=== PATIENT | male | born 1945 | race Caucasian/White ===

== ENCOUNTER 2021-11-27 10:53 | Emergency (ER) | payer MEDICARE, OTHER ==
[~2021-11-27] VITALS: Ht 172 cm; Wt 85.0 kg
--- NOTE | 2021-11-27 11:05 | ED Lower Extremity ---
General Stated Complaint: LEG PAIN Source: patient, EMS History of Present Illness Date Seen by Provider: Nov 27, 2021 Time Seen by Provider: 10:52 Initial Comments 76 yo male presenting with [facility] from [facility] with complaint of left knee pain. He had rolled out of bed and was complaining of left knee pain. He also has swelling and abrasion to left upper lip. He denies LOC. 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 He does not fully extend his legs usually due to contractures. His right leg is flexed at the knee and he points to just below his knee when asked where it hurts. He denies any other injury. He has no chest or abdomen pain. Onset: this morning Severity: moderate Pain/Injury Location: right knee Method of Injury: fell (rolled out of bed) Modifying Factors: Worse With Movement Allergies and Home Medications Allergies Coded Allergies: No Known Drug Allergies (Unverified , 11/27/21) Patient Home Medication List Home Medication List Reviewed: Yes Ibuprofen (Ibuprofen) 600 Mg Tablet, 600 MG PO Q8H PRN for pain/inflammation Prescribed by: ELOISA VELOZ on 11/27/21 1147 Review of Systems Constitutional: no symptoms reported EENTM: see HPI, mouth swelling (mild swelling and abrasion to left upper lip), other (widespread dental decay and several missing teeth); No epistaxis Respiratory: no symptoms reported Cardiovascular: no symptoms reported Gastrointestinal: no symptoms reported Genitourinary: no symptoms reported Musculoskeletal: see HPI Skin: see HPI, other (superficial abrasion and mild swelling to left upper lip) Psychiatric/Neurological: No Symptoms Reported Past Hmjeujt-Omcwwe-Bpfnqt Hx Patient Social History Tobacco Use?: No Substance use?: No Alcohol Use?: No Past Medical History Surgery/Hospitalization HX: Developmental Delay, Leg contractures Physical Exam Vital Signs Vital Signs - First Documented 11/27/21 11/27/21 11:03 12:18 Temp 36.5 Pulse 91 Resp 18 B/P (MAP) 140/78 (98) Pulse Ox 94 Capillary Refill : Height, Weight, BMI Height: '" Weight: lbs. oz. kg; BMI Method: General Appearance: no apparent distress, other (chronically ill) HEENT: PERRL/EOMI, other (negative archer sign, negative raccoon sign, no CSF rhinorrhea/otorrhea. superficial abrasion and mild swelling to left side of upper lip. widespread dental decay with several missing teeth) Neck: non-tender, full range of motion, supple, normal inspection Cardiovascular: normal peripheral pulses, regular rate, rhythm Respiratory: chest non-tender, lungs clear, normal breath sounds Gastrointestinal: normal bowel sounds, non tender, soft, no pulsatile mass Hips: bilateral hip non-tender, bilateral hip normal inspection Knees: right knee pain, right knee soft tissue tenderness; bilateral knee other (bilateral chronic flexion and contractures to Bilateral lower extremities) Neurologic/Tendon: normal sensation Neurologic/Psychiatric: alert Skin: normal color, warm/dry Progress/Results/Core Measures Results/Orders My Orders Orders - ELOISA VELOZ MD Knee 3 View Right (11/27/21 10:58) Femur 2 View Right (11/27/21 10:58) Ice: Apply To Affected Area (11/27/21 10:58) Ketorolac Injection (Toradol Injection) (11/27/21 12:00) Morphine Injection (Morphine Injection (11/27/21 12:00) Jb Bandage (11/27/21 12:00) Vital Signs/I&O 11/27/21 11/27/21 11:03 12:18 Temp 36.5 Pulse 91 87 Resp 18 18 B/P (MAP) 140/78 (98) 131/72 Pulse Ox 94 Progress Progress Note #1: Progress Note Nurses cleaned his lip abrasion. Order Ice pack for swollen lip and knee pain. Xrays of right femur and knee since he was grabbing his distal femur with complaint of pain when being moved to bed and points to inferior aspect of knee when asked where it hurts him. Progress Note #2: Progress Note On my review of the x-rays of his right femur and right knee there is no acute fracture or dislocation. He has degenerative changes especially on the right hip. Treat symptomatically and have him follow-up through the clinic for continued pains and concerns. Could apply an ice bandage for some compression and support to his knee however with him having chronic contracture of the knee on the right side it may not help very much. He may need to follow-up with the clinic and/or had physical therapy to help with things. If he continues to have pain in his symptoms or not improving the clinic may need him to see orthopedics or physical therapy for further evaluation Diagnostic Imaging Diagonstic Imaging: Xray Plain Films/CT/US/NM/MRI: knee Comments [facility], [place] NAME: JEAN ELLIS [facility] REC#: [id number] PT STATUS: REG ER : 1945 PHYSICIAN: ELOISA VELOZ MD ADMIT DATE: 11/27/21/ER FS Signed Date of Exam:11/27/21 KNEE 3 VIEW RIGHT Indication: Right leg injury from a fall 3 views of the right knee do not show any displaced fractures. There is no appreciable effusion. There is no dislocation. IMPRESSION: Unremarkable right knee Dictated by: Dictated on workstation # [id number] Dict: 11/27/21 1138 Trans: 11/27/21 1139 [facility] [id number] Interpreted by: SAMUEL DECKER MD Electronically signed by: SAMUEL DECKER MD 11/27/21 1139 Reviewed: Reviewed by Nd Diagonstic Imaging: Xray Plain Films/CT/US/NM/MRI: femur Comments [facility], [place] NAME: JEAN ELLIS [facility] REC#: [id number] PT STATUS: REG ER : 1945 PHYSICIAN: ELOISA VELOZ MD ADMIT DATE: 11/27/21/ER FS Draft Date of Exam:11/27/21 FEMUR 2 VIEW RIGHT INDICATION: Right leg pain, fall. TIME OF EXAM: 11:11 AM Multiple views of the right femur were obtained. The right hip does show severe osteoarthritic changes. There is significant narrowing of the superior and medial joint spaces. There is also some flattening of the articular surfaces of the femoral head but no definite fracture is seen. Subchondral cyst formation and sclerosis of the femoral head. Alignment at the knee is normal as well. No femur fracture is identified. IMPRESSION: Severe osteoarthritic changes of the right hip. No definite femur fracture is detected. Dictated on workstation # [id number] Dict: 11/27/21 1139 Trans: 11/27/21 1143 B [id number] Interpreted by: PRISCILLA KAISER MD Electronically signed by: Reviewed: Reviewed by Me Departure Impression Primary Impression: Contusion of lip, initial encounter Additional Impressions: Abrasion of lip, initial encounter Right anterior knee pain Fall from bed, initial encounter Disposition: HOME, SELF-CARE Condition: Stable Departure-Patient Inst. Decision time for Depature: 12:01 Referrals: [facility] Patient Instructions: Knee Pain ED, Minor Contusion ED, Abrasions ED Add. Discharge Instructions: No obvious fracture, broken bone or dislocation seen on xrays. Use ice pack 15-20 minutes every 3-4 hours as needed for pain and swelling. You could use the Jb bandage to help with compression and support for the knee Ibuprofen 600 mg every 8 hours as needed for pain and inflammation. Check back with clinic if you have continued pain/concerns. They may need to refer you to physical therapy or Orthopedics if having continued issues and not improving. Scripts Ibuprofen (Ibuprofen) 600 Mg Tablet 600 MG PO Q8H PRN for pain/inflammation for 10 Days, #30 TAB 0 Refills Prov: ELOISA VELOZ MD 11/27/21 ELOISA VELOZ MD Nov 27, 2021 11:05
--- NOTE | 2021-11-27 11:41 | Diagnostic Imaging Report ---
Indication: Right leg injury from a fall 3 views of the right knee do not show any displaced fractures. There is no appreciable effusion. There is no dislocation. IMPRESSION: Unremarkable right knee Dictated by: Dictated on workstation # [id number]
--- NOTE | 2021-11-27 11:43 | Diagnostic Imaging Report ---
INDICATION: Right leg pain, fall. TIME OF EXAM: 11:11 AM Multiple views of the right femur were obtained. The right hip does show severe osteoarthritic changes. There is significant narrowing of the superior and medial joint spaces. There is also some flattening of the articular surfaces of the femoral head but no definite fracture is seen. Subchondral cyst formation and sclerosis of the femoral head. Alignment at the knee is normal as well. No femur fracture is identified. IMPRESSION: Severe osteoarthritic changes of the right hip. No definite femur fracture is detected. Dictated by: Dictated on workstation # [id number]
[2021-11-27] MEDS ORDERED: IBUP-1773 PO (11:47)
[2021-11-27] MEDS ORDERED: KETOROLAC 30 MG/ML VIAL IM STA (12:00)
[2021-11-27] MEDS ORDERED: morphine INJ 10 MG/ML 1ML (SYR OR VIAL) IM STA (12:00)
[2021-11-27 12:18] VITALS: BP 131/72
== END 2021-11-27 12:15 | disposition home or self-care (01) ==
LOC: ER FS 10:57
DX: S00.531A Contusion of lip, initial encounter (principal); M25.561 Pain in right knee; W06.XXXA Fall from bed, initial encounter
CPT/HCPCS: 73552; 73562

== ENCOUNTER 2021-12-25 08:40 | Emergency (ER) | payer MEDICARE ==
[~2021-12-25] VITALS: Ht 175 cm; Wt 83.0 kg
[~2021-12-25 08:40] MED LIST: IBUP-1773 PO
[2021-12-25] MEDS ORDERED: FAMOTIDINE 20MG/2ML IV (PEPCID) IV STA (08:48)
--- NOTE | 2021-12-25 08:48 | ED Chest Pain ---
General Stated Complaint: CHEST PAIN History of Present Illness Date Seen by Provider: Dec 25, 2021 Time Seen by Provider: 08:44 Initial Comments 76-year-old male presents with some epigastric/chest pain is now around his mid belly. Pain started this morning. He had some mild nausea. Patient denies any fever, chills, shortness of breath. No reports of vomiting or diarrhea. Patient does have some developmental delay. No radiation of the pain. He denies pain at this time. Family reports he has been a little nervous because he scheduled to have his right hip replaced in about 2 weeks. Allergies and Home Medications Allergies Coded Allergies: No Known Drug Allergies (Unverified , 11/27/21) Patient Home Medication List Home Medication List Reviewed: Yes Ibuprofen (Ibuprofen) 600 Mg Tablet, 600 MG PO Q8H PRN for pain/inflammation Prescribed by: ELOISA VELOZ on 11/27/21 1147 Review of Systems Review of Systems Constitutional: No chills; dizziness; No fever EENTM: No Symptoms Reported Respiratory: Denies Cough, Denies Shortness of Air Cardiovascular: See HPI, Chest Pain; Denies Irregular Heart Rate, Denies Palpitations Gastrointestinal: See HPI, Abdominal Pain; Denies Diarrhea; Nausea; Denies Vomiting Skin: no symptoms reported Psychiatric/Neurological: See HPI Endocrine: No Symptoms Reported Hematologic/Lymphatic: No Symptoms Reported Past Bsieoso-Allzmk-Zaxzxu Hx Past Medical History Surgery/Hospitalization HX: Developmental Delay, Leg contractures Physical Exam Vital Signs Vital Signs - First Documented 12/25/21 08:59 Temp 35.7 Pulse 103 Resp 22 B/P (MAP) 108/62 (77) Pulse Ox 97 O2 Delivery Room Air Capillary Refill : Height, Weight, BMI Height: '" Weight: lbs. oz. kg; 28.00 BMI Method: General Appearance: No Apparent Distress, WD/WN Respiratory: Lungs Clear, Normal Breath Sounds Cardiovascular: Regular Rate, Rhythm, No Edema Gastrointestinal: Non Tender, Soft Extremity: Normal Capillary Refill, Other (Baseline, he does have some tende rness that is chronic on the right hip) Neurologic/Psychiatric: Alert, No Motor/Sensory Deficits, Normal Mood/Affect, Other (At baseline) Skin: Normal Color, Warm/Dry Progress/Results/Core Measures Results/Orders Lab Results Laboratory Tests Test 12/25/21 08:55 Range/Units White Blood Count 7.8 4.3-11.0 10^3/uL Red Blood Count 4.58 4.30-5.52 10^6/uL Hemoglobin 13.4 13.3-17.7 g/dL Hematocrit 41 40-54 % Mean Corpuscular Volume 88 80-99 fL Mean Corpuscular Hemoglobin 29 25-34 pg Mean Corpuscular Hemoglobin Concent 33 32-36 g/dL Red Cell Distribution Width 14.0 10.0-14.5 % Platelet Count 153 130-400 10^3/uL Mean Platelet Volume 11.7 9.0-12.2 fL Immature Granulocyte % (Auto) 0 % Neutrophils (%) (Auto) 81 H 42-75 % Lymphocytes (%) (Auto) 13 12-44 % Monocytes (%) (Auto) 4 0-12 % Eosinophils (%) (Auto) 2 0-10 % Basophils (%) (Auto) 1 0-10 % Neutrophils # (Auto) 6.3 1.8-7.8 10^3/uL Lymphocytes # (Auto) 1.0 1.0-4.0 10^3/uL Monocytes # (Auto) 0.3 0.0-1.0 10^3/uL Eosinophils # (Auto) 0.2 0.0-0.3 10^3/uL Basophils # (Auto) 0.0 0.0-0.1 10^3/uL Immature Granulocyte # (Auto) 0.0 0.0-0.1 10^3/uL Sodium Level 143 135-145 MMOL/L Potassium Level 3.6 3.6-5.0 MMOL/L Chloride Level 106 98-107 MMOL/L Carbon Dioxide Level 20 L 21-32 MMOL/L Anion Gap 17 H 5-14 MMOL/L Blood Urea Nitrogen 38 H 7-18 MG/DL Creatinine 1.86 H 0.60-1.30 MG/DL Estimat Glomerular Filtration Rate 37 BUN/Creatinine Ratio 20 Glucose Level 148 H 70-105 MG/DL Calcium Level 8.6 8.5-10.1 MG/DL Corrected Calcium 8.5 8.5-10.1 MG/DL Total Bilirubin 0.8 0.1-1.0 MG/DL Aspartate Amino Transf (AST/SGOT) 14 5-34 U/L Alanine Aminotransferase (ALT/SGPT) 10 0-55 U/L Alkaline Phosphatase 87 40-136 U/L Troponin I < 0.30 <0.30 NG/ML C-Reactive Protein < 0.30 <0.50 MG/DL Total Protein 6.9 6.4-8.2 GM/DL Albumin 4.1 3.2-4.5 GM/DL Lipase 34 8-78 U/L My Orders Orders - SALGADO,MOR L DO Cbc With Automated Diff (12/25/21 08:48) Comprehensive Metabolic Panel (12/25/21 08:48) Lipase (12/25/21 08:48) Ua Culture If Indicated (12/25/21 08:48) Crp Fs (12/25/21 08:48) Troponin I Fs (12/25/21 08:48) Ondansetron Injection (Zofran Injectio (12/25/21 09:00) Famotidine Injection (Pepcid Injection) (12/25/21 08:48) Ed Iv/Invasive Line Start (12/25/21 08:54) Ns Iv 500 Ml (Sodium Chloride 0.9%) (12/25/21 09:00) Ekg Tracing (12/25/21 09:07) Monitor-Rhythm Ecg Trace Only (12/25/21 09:07) Abdomen (Kub) 1 View (12/25/21 09:08) Chest 1 View Ap/Pa Only (12/25/21 09:08) Medications Given in ED Current Medications Medications Dose Ordered Sig/Martin Route Start Time Stop Time Status Last Admin Dose Admin Ondansetron HCl 4 mg ONCE ONCE IVP 12/25/21 09:00 12/25/21 09:01 DC 12/25/21 09:11 4 MG Sodium Chloride 500 ml @ 0 mls/hr Q0M ONCE IV 12/25/21 09:00 12/25/21 09:01 DC 12/25/21 09:11 0 MLS/HR Vital Signs/I&O 12/25/21 08:59 Temp 35.7 Pulse 103 Resp 22 B/P (MAP) 108/62 (77) Pulse Ox 97 O2 Delivery Room Air Progress Progress Note : Progress Note Patient's pain had resolved prior to presenting to the ER. Patient's pain was more located in the epigastric mid abdomen and in the chest. He had no other associated symptoms concerning for cardiac origin. He does have a history of reflux. He complained of a little bit of nausea that is also resolved. Patient remained pain-free throughout his ER stay except for his chronic right hip pain. He is scheduled to have that replaced on 01/06/2022 and they report that he is extremely anxious and nervous about this. I suspect that this may be part of the underlying issues with his stomach he does have a little nausea from anxiety. Patient is stable and discharged home. Initial ECG Impression Date: Dec 25, 2021 Initial ECG Impression Time: 08:48 Initial ECG Rate: 105 Initial ECG Rhythm: S.Tach Initial ECG Intervals: Normal Initial ECG Impression: Normal Comment sinus tach Diagnostic Imaging Diagonstic Imaging: Xray Plain Films/CT/US/NM/MRI: chest Comments Date of Exam:12/25/21 CHEST 1 VIEW AP/PA ONLY CLINICAL INDICATION: Patient with chest and abdominal pain. EXAM: Portable chest x-ray upright view. COMPARISON: None. FINDINGS: There is mild cardiomegaly. There is no significant pulmonary vascular congestion. There is mild amorphous and curvilinear opacities in both lung bases which may represent atelectasis, but superimposed infiltrates especially left lung base cannot be completely excluded. There is no pleural effusion or pneumothorax. There are degenerative spurs involving the thoracic spine. IMPRESSION: 1: There is bibasilar atelectasis, but superimposed infiltrate left lung base cannot be complete excluded. 2: There is cardiomegaly with no significant pulmonary vascular congestion. Diagonstic Imaging: Xray Plain Films/CT/US/NM/MRI: abdomen Comments Date of Exam:12/25/21 ABDOMEN (KUB) 1 VIEW CLINICAL INDICATION: Patient with chest and abdominal pain. EXAM: X-ray of the abdomen supine view. COMPARISON: None. FINDINGS: There is no intestinal obstruction. There is no intra-abdominal free air. There is small amount of stool throughout the colon. Calcifications in the pelvis noted. There is severe degenerative disease of both hips with subchondral cystic changes and sclerosis and slight flattening of the femoral head regions. 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 Hypertrophic spurs involving the bilateral hip regions. There are degenerative spurs involving lumbar spine. IMPRESSION: 1: There is no intestinal obstruction. There is small amount of stool within the colon. 2: There is severe degenerative disease of both hips with spurring, subchondral cystic changes, and sclerosis. There is also axial migration of the humeral head protrusio acetabuli appearance. These findings may be seen with rheumatoid arthritis, AVN, and/or superimposed degenerative disease. Departure Impression Primary Impression: Epigastric abdominal pain Disposition: 01 HOME, SELF-CARE Condition: Stable Departure-Patient Inst. Referrals: [facility] (PCP/Family) Primary Care Physician Patient Instructions: Gastritis, Dyspepsia Add. Discharge Instructions: Follow-up with your primary care provider for further management of his chronic pain, I would encourage you to discuss with them -home health options to help with pre and post surgery recovery. MOR SALGADO DO Dec 25, 2021 08:48
[2021-12-25] MEDS ORDERED: NS IV 500 ML 500 ML IV ONE (09:00)
[2021-12-25] MEDS ORDERED: ONDANSETRON 4 MG/2 ML (SDV) Z0FRAN IVP ONE (09:00)
[2021-12-25 09:08] LABS: BASOPHILS % (AUTO) 1 % (0-10); EOSINOPHILS # (AUTO) 0.2 10^3/uL (0.0-0.3); EOSINOPHILS % (AUTO) 2 % (0-10); HEMATOCRIT 41 % (40-54); HEMOGLOBIN 13.4 g/dL (13.3-17.7); LYMPHOCYTES % (AUTO) 13 % (12-44); MEAN CORPUSCULAR HEMOGLOBIN 29 pg (25-34); MEAN CORPUSCULAR HGB CONC 33 g/dL (32-36); MEAN CORPUSCULAR VOLUME 88 fL (80-99); MEAN PLATELET VOLUME 11.7 fL (9.0-12.2); MONOCYTES # (AUTO) 0.3 10^3/uL (0.0-1.0); MONOCYTES % (AUTO) 4 % (0-12); NEUTROPHILS # (AUTO) 6.3 10^3/uL (1.8-7.8); NEUTROPHILS % (AUTO) 81 % (42-75); PLATELET COUNT 153 10^3/uL (130-400); WHITE BLOOD COUNT 7.8 10^3/uL (4.3-11.0)
[2021-12-25 09:34] LABS: ALANINE AMINOTRANSFERASE 10 U/L (0-55); BILIRUBIN,TOTAL 0.8 MG/DL (0.1-1.0); BUN/CREATININE RATIO 20; CALCIUM 8.6 MG/DL (8.5-10.1); CARBON DIOXIDE 20 MMOL/L (21-32); CHLORIDE 106 MMOL/L (98-107); CREATININE SERUM 1.86 MG/DL (0.60-1.30); GFR ESTIMATED 37; GLUCOSE 148 MG/DL (70-105); POTASSIUM 3.6 MMOL/L (3.6-5.0); SODIUM 143 MMOL/L (135-145)
--- NOTE | 2021-12-25 09:34 | Diagnostic Imaging Report ---
CLINICAL INDICATION: Patient with chest and abdominal pain. EXAM: Portable chest x-ray upright view. COMPARISON: None. FINDINGS: There is mild cardiomegaly. There is no significant pulmonary vascular congestion. There is mild amorphous and curvilinear opacities in both lung bases which may represent atelectasis, but superimposed infiltrates especially left lung base cannot be completely excluded. There is no pleural effusion or pneumothorax. There are degenerative spurs involving the thoracic spine. IMPRESSION: 1: There is bibasilar atelectasis, but superimposed infiltrate left lung base cannot be complete excluded. 2: There is cardiomegaly with no significant pulmonary vascular congestion. Dictated by: Dictated on workstation # [id number]
[2021-12-25 09:35] LABS: ALBUMIN 4.1 GM/DL (3.2-4.5); ALKALINE PHOSPHATASE 87 U/L (40-136); LIPASE 34 U/L (8-78); TOTAL PROTEIN 6.9 GM/DL (6.4-8.2)
--- NOTE | 2021-12-25 09:38 | Diagnostic Imaging Report ---
CLINICAL INDICATION: Patient with chest and abdominal pain. EXAM: X-ray of the abdomen supine view. COMPARISON: None. FINDINGS: There is no intestinal obstruction. There is no intra-abdominal free air. There is small amount of stool throughout the colon. Calcifications in the pelvis noted. There is severe degenerative disease of both hips with subchondral cystic changes and sclerosis and slight flattening of the femoral head regions. 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 Hypertrophic spurs involving the bilateral hip regions. There are degenerative spurs involving lumbar spine. IMPRESSION: 1: There is no intestinal obstruction. There is small amount of stool within the colon. 2: There is severe degenerative disease of both hips with spurring, subchondral cystic changes, and sclerosis. There is also axial migration of the humeral head protrusio acetabuli appearance. These findings may be seen with rheumatoid arthritis, AVN, and/or superimposed degenerative disease. Dictated by: Dictated on workstation # [id number]
[2021-12-25] MEDS ORDERED: fentaNYL INJ 100 MCG/2 ML AMP IVP STA (09:49)
[2021-12-25 11:08] VITALS: BP 124/68
== END 2021-12-25 10:10 | disposition home or self-care (01) ==
LOC: EDUNIT# 08:40 → ER FS 08:42
DX: R10.13 Epigastric pain (principal)
CPT/HCPCS: 36415; 71045; 74018; 80053; 83690; 84484; 85025; 86141

== ENCOUNTER 2022-04-28 00:19 | Emergency (ER) | payer MEDICARE ==
--- NOTE | 2022-04-28 00:26 | ED General ---
General Stated Complaint: CHEST PAINS History of Present Illness Date Seen by Provider: Apr 28, 2022 Time Seen by Provider: 00:25 Initial Comments 77-year-old male with PMH of intellectual disability/HTN/UTI/recent right hip replacement, is here with complaints of chest pain which began approximately an hour ago. Denies fever, nausea, vomiting, diarrhea, constipation, palpitations, dizziness. Allergies and Home Medications Allergies Coded Allergies: No Known Drug Allergies (Unverified , 11/27/21) Patient Home Medication List Home Medication List Reviewed: Yes Finasteride (Finasteride) 5 Mg Tablet, 5 MG PO DAILY, (Reported) Entered as Reported by: FRANCESCA MERRILL on 04/28/22128 Last Action: New Order Hydrochlorothiazide (Hydrochlorothiazide) 25 Mg Tablet, 25 MG PO DAILY, (Reported) Entered as Reported by: FRANCESCA MERRILL on 04/28/22129 Last Action: New Order Metoprolol Tartrate (Metoprolol Tartrate) 50 Mg Tablet, 50 MG PO TID, (Reported) Entered as Reported by: FRANCESCA MERRILL on 04/28/22129 Last Action: New Order Pantoprazole Sodium (Pantoprazole Sodium) 40 Mg Tablet.dr, 40 MG PO BID, (Reported) Entered as Reported by: FRANCESCA MERRILL on 04/28/22129 Last Action: New Order Sulfamethoxazole/Trimethoprim (Bactrim Ds Tablet) 1 Each Tablet, 1 EACH PO BID, (Reported) Entered as Reported by: FRANCESCA MERRILL on 04/28/22129 Last Action: New Order Tamsulosin HCl (Flomax) 0.4 Mg Cap, 0.4 MG PO DAILY, (Reported) Entered as Reported by: FRANCESCA MERRILL on 04/28/22128 Last Action: New Order Discontinued Medications Ibuprofen (Ibuprofen) 600 Mg Tablet, 600 MG PO Q8H PRN for pain/inflammation Discontinued Reason: Referral/FU Appt-Addtl Prescribed by: ELOISA VELOZ on 11/27/21 114 Last Action: Discontinued Review of Systems Review of Systems Constitutional: no symptoms reported EENTM: no symptoms reported Respiratory: no symptoms reported Cardiovascular: chest pain Gastrointestinal: abdominal pain Genitourinary: no symptoms reported Skin: no symptoms reported Psychiatric/Neurological: No Symptoms Reported Hematologic/Lymphatic: No Symptoms Reported Immunological/Allergic: no symptoms reported Past Vycslaf-Cysldn-Iqnkxx Hx Past Medical History Surgery/Hospitalization HX: Developmental Delay, Leg contractures Physical Exam Vital Signs Vital Signs - First Documented 04/28/22 00:19 Temp 36.4 Pulse 88 Resp 22 B/P (MAP) 150/73 (98) Pulse Ox 93 O2 Delivery Room Air Capillary Refill : Height, Weight, BMI Height: '" Weight: lbs. oz. kg; 27.00 BMI Method: General Appearance: Mild Distress HEENT: PERRL/EOMI, Normal ENT Inspection, Pharynx Normal Neck: Full Range of Motion, Normal Inspection, Non Tender, Supple Respiratory: Chest Non Tender, Lungs Clear, Normal Breath Sounds, No Accessory Muscle Use, No Respiratory Distress Cardiovascular: Regular Rate, Rhythm, No Edema, No Murmur Gastrointestinal: Normal Bowel Sounds, No Organomegaly, No Pulsatile Mass, Soft, Other (mild epigastric tenderness) Back: Normal Inspection, No CVA Tenderness, No Vertebral Tenderness Extremity: Normal Range of Motion Neurologic/Psychiatric: Alert, Oriented x3, Normal Mood/Affect Focused Exam Lactate Level 04/28/22 00:40: Lactic Acid Level 1.17 Lactic Acid Level Laboratory Tests Test 04/28/22 00:40 Lactic Acid Level 1.17 MMOL/L (0.50-2.00) Progress/Results/Core Measures Suspected Sepsis SIRS Temperature: Pulse: Respiratory Rate: Laboratory Tests 04/28/22 00:26: White Blood Count 10.2 Blood Pressure / Mean: 04/28/22 00:40: Lactic Acid Level 1.17 Laboratory Tests 04/28/22 00:26: Creatinine 1.32H, INR Comment 1.0, Platelet Count 220, Total Bilirubin 0.5 Results/Orders Lab Results Laboratory Tests Test 04/28/22 00:26 04/28/22 00:40 Range/Units White Blood Count 10.2 4.3-11.0 10^3/uL Red Blood Count 4.32 4.30-5.52 10^6/uL Hemoglobin 12.8 L 13.3-17.7 g/dL Hematocrit 38 L 40-54 % Mean Corpuscular Volume 89 80-99 fL Mean Corpuscular Hemoglobin 30 25-34 pg Mean Corpuscular Hemoglobin Concent 33 32-36 g/dL Red Cell Distribution Width 13.4 10.0-14.5 % Platelet Count 220 130-400 10^3/uL Mean Platelet Volume 11.0 9.0-12.2 fL Immature Granulocyte % (Auto) 0 % Neutrophils (%) (Auto) 74 42-75 % Lymphocytes (%) (Auto) 19 12-44 % Monocytes (%) (Auto) 5 0-12 % Eosinophils (%) (Auto) 2 0-10 % Basophils (%) (Auto) 0 0-10 % Neutrophils # (Auto) 7.5 1.8-7.8 10^3/uL Lymphocytes # (Auto) 1.9 1.0-4.0 10^3/uL Monocytes # (Auto) 0.5 0.0-1.0 10^3/uL Eosinophils # (Auto) 0.2 0.0-0.3 10^3/uL Basophils # (Auto) 0.0 0.0-0.1 10^3/uL Immature Granulocyte # (Auto) 0.0 0.0-0.1 10^3/uL Prothrombin Time 13.6 12.2-14.7 SEC INR Comment 1.0 0.8-1.4 Activated Partial Thromboplast Time 26 24-35 SEC D-Dimer 1.90 H 0.00-0.49 UG/ML Sodium Level 141 135-145 MMOL/L Potassium Level 3.7 3.6-5.0 MMOL/L Chloride Level 103 98-107 MMOL/L Carbon Dioxide Level 26 21-32 MMOL/L Anion Gap 12 5-14 MMOL/L Blood Urea Nitrogen 29 H 7-18 MG/DL Creatinine 1.32 H 0.60-1.30 MG/DL Estimat Glomerular Filtration Rate 55 BUN/Creatinine Ratio 22 Glucose Level 130 H 70-105 MG/DL Calcium Level 8.7 8.5-10.1 MG/DL Corrected Calcium 8.7 8.5-10.1 MG/DL Magnesium Level 1.7 1.6-2.4 MG/DL Total Bilirubin 0.5 0.1-1.0 MG/DL Aspartate Amino Transf (AST/SGOT) 129 H 5-34 U/L Alanine Aminotransferase (ALT/SGPT) 68 H 0-55 U/L Alkaline Phosphatase 163 H 40-136 U/L Troponin I < 0.30 <0.30 NG/ML Pro-B-Type Natriuretic Peptide 555.6 H <450.0 PG/ML Total Protein 7.1 6.4-8.2 GM/DL Albumin 4.0 3.2-4.5 GM/DL Lipase 41 8-78 U/L Urine Color YELLOW Urine Clarity SL CLOUDY Urine pH 6.5 5-9 Urine Specific [place] 1.025 H 1.016-1.022 Urine Protein TRACE H NEGATIVE Urine Glucose (UA) NEGATIVE NEGATIVE Urine Ketones NEGATIVE NEGATIVE Urine Nitrite POSITIVE H NEGATIVE Urine Bilirubin NEGATIVE NEGATIVE Urine Urobilinogen 1.0 < = 1.0 MG/DL Urine Leukocyte Esterase 1+ H NEGATIVE Urine RBC (Auto) 3+ H NEGATIVE Urine RBC 10-25 H /HPF Urine WBC 10-25 H /HPF Urine Squamous Epithelial Cells NONE /HPF Urine Crystals NONE /LPF Urine Bacteria LARGE H /HPF Urine Casts NONE /LPF Urine Mucus MODERATE H /LPF Urine Culture Indicated YES Lactic Acid Level 1.17 0.50-2.00 MMOL/L My Orders Orders - TAM MONK MD Cbc With Automated Diff (04/28/22:) Comprehensive Metabolic Panel (04/28/22:) Fibrin Degradation Products (04/28/22) Lactic Acid Analyzer (04/28/22:) Lipase (04/28/22) Magnesium (04/28/22) Protime With Inr (04/28/22) Partial Thromboplastin Time (04/28/22) Ua Culture If Indicated (04/28/22) Probnp Fs (04/28/22:) Troponin I Fs (04/28/22:) Continuous Ekg Monitoring (04/28/22:) Ekg Tracing (04/28/22:) Chest 1 View Ap/Pa Only (04/28/22:) Aspirin Chewable Tablet (Baby Aspirin Ch (04/28/22 00:30) Ed Iv/Invasive Line Start (04/28/22 00:29) Ct Abdomen/Pelvis Wo (04/28/22 00:42) Famotidine Injection (Pepcid Injection) (04/28/22 01:00) Urine Culture (04/28/22 00:40) Ct Angio Chest W (04/28/22 01:43) Iohexol Injection (Omnipaque 350 Mg/Ml 1 (04/28/22 02:00) Received Contrast (Hold Metformin- Contr (04/28/22 02:00) Ns (Ivpb) (Sodium Chloride 0.9% Ivpb Bag (04/28/22 02:00) Antacid Suspension (Mylanta Suspension (04/28/22 02:00) Lidocaine 2% Viscous 15 Ml (Xylocaine Vi (04/28/22 02:00) Lidocaine 2% Viscous 15 Ml (Xylocaine Vi (04/28/22 02:24) Ceftriaxone 1 Gm Pre-Mix (Rocephin 1 Gm (04/28/22 03:00) Medications Given in ED Current Medications Medications Dose Ordered Sig/Martin Route Start Time Stop Time Status Last Admin Dose Admin Al Hydrox/Mg Hydrox/Simethicone 30 ml ONCE ONCE PO 04/28/22 02:00 04/28/22 02:23 DC 04/28/22 02:27 30 ML Aspirin 324 mg ONCE ONCE PO 04/28/22 00:30 04/28/22 00:33 DC 04/28/22 00:41 324 MG Ceftriaxone Sodium/Dextrose 50 ml @ 100 mls/hr ONCE ONCE IV 04/28/22 03:00 04/28/22 03:29 04/28/22 02:58 100 MLS/HR Famotidine 20 mg ONCE ONCE IVP 04/28/22 01:00 04/28/22 01:01 DC 04/28/22 01:07 20 MG Iohexol 100 ml ONCE ONCE IV 04/28/22 02:00 04/28/22 02:01 DC 04/28/22 02:07 100 ML Lidocaine HCl 5 ml ONCE ONCE PO 04/28/22 02:00 04/28/22 02:23 DC 04/28/22 02:27 5 ML Sodium Chloride 100 ml ONCE ONCE IV 04/28/22 02:00 04/28/22 02:01 DC 04/28/22 02:07 100 ML Vital Signs/I&O 04/28/22 00:19 Temp 36.4 Pulse 88 Resp 22 B/P (MAP) 150/73 (98) Pulse Ox 93 O2 Delivery Room Air Capillary Refill : Progress Note : Progress Note 1. HIATAL HERNIA/ CHOLELITHIASIS/ DIVERTICULOSIS: - CXR: - CT ABD: Moderate to large hiatal hernia with distended stomach containing retained foodstuffs. Cholelithiasis. Diverticulosis. - Labs: Elevated AST, ALT, and Alk Phos. Bilirubin is normal - Pepcid 20mg iv/ Viscous lidocaine/ Maalox: pt's symptoms improved with this - Surgery consult contacted, advised that if patient improves and GI cocktail to discharge patient on Protonix, and follow-up in surgery clinic soon as possible. Patient to call surgery clinic in the morning to make appointment. - Advised to sit upright for at least 30 minutes after every meal, without lying down immediately. [place] diet. -The patient was seen in the ED, and treated appropriately to presentation at a specific point in time. Patient is informed that there is a possibility that disease and illness can evolve and change in acuity rapidly or slowly after patient is discharged from the ER. Precautionary advice given to the patient for immediate return to ER if symptoms worsen or do not resolve, and to seek emergency care sooner rather than later. Pt also advised on the importance of PCP follow up and compliance with management and follow up plan with PCP and/or specialist, as this is part of the management plan. Pt verbally expressed unde rstanding. 2. ACS RULE OUT: - Troponin/ EKG: non-ischemic - ASA 324mg STAT 3. ACUTE CYRSTITIS WITH HEMATURIA: - UA is positive for leukocyte Esterase, nitrate, WBC, RBC, bacteria - Ceftriaxone 1 gm iv STAT in ER - Discharged pt on Cefpodoxime for 7 days bid 4. ELEVATED D-DIMER: - D-dimer is 1.90 - CTA CHEST: negative for PE Diagnostic Imaging Diagonstic Imaging: Xray, CT Plain Films/CT/US/NM/MRI: chest, abdomen Departure Communication (Admissions) Time/Spoke to Consulting Phy: 01:53 Discussed with surgery consult, Dr Isaac: GI cocktail, if improved can discharge on Protonix with surgery clinic follow up. If not improving can admit Impression Primary Impression: Hiatal hernia with GERD Additional Impressions: Cholelithiasis Qualified Codes: K80.20 - Calculus of gallbladder without cholecystitis without obstruction Diverticulosis of colon without diverticulitis Acute cystitis with hematuria Disposition: HOME, SELF-CARE Condition: Improved Admissions Decision to Admit/Date: Apr 28, 2022 Time/Decision to Admit Time: 01:50 Departure-Patient Inst. Referrals: [facility] (PCP/Family) Primary Care Physician BARBARA ISAAC DO Patient Instructions: Urinary Tract Infection, Adult ED, Hiatal Hernia (DC), Acid Reflux and Gastroesophageal Reflux Disease in Adults, Gallbladder Diet, Hiatal Hernia, Diverticulosis Add. Discharge Instructions: - Protonix prescription, and follow-up in surgery clinic soon as possible. Patient to call surgery clinic in the morning to make appointment. - Advised maalox prn gastric upset - Advised to sit upright for at least 30 minutes after every meal, without lying down immediately. [place] diet. Avoid fatty foods. - Return to ER if symptoms worsening Scripts Mag Hydrox/Aluminum Hyd/Simeth (Maalox Advanced Suspension) 200 Mg-200 Mg-20 Mg/5 Ml Oral.susp 355 ML PO TID for Abdominal Pain for 7 Days, #1000 ML Prov: TAM MONK MD 04/28/22 Pantoprazole Sodium (Protonix) 40 Mg Granpkt.dr 40 MG PO DAILY for 10 Days, #10 TAB Prov: TAM MONK MD 04/28/22 TAM MONK MD Apr 28, 2022 00:26
[2022-04-28] MEDS ORDERED: ASPIRIN 81 MG CHEW (CHILDREN'S ASA) PO ONE (00:30)
[2022-04-28 00:34] LABS: BASOPHILS % (AUTO) 0 % (0-10); EOSINOPHILS # (AUTO) 0.2 10^3/uL (0.0-0.3); EOSINOPHILS % (AUTO) 2 % (0-10); HEMATOCRIT 38 % (40-54); HEMOGLOBIN 12.8 g/dL (13.3-17.7); LYMPHOCYTES # (AUTO) 1.9 10^3/uL (1.0-4.0); LYMPHOCYTES % (AUTO) 19 % (12-44); MEAN CORPUSCULAR HEMOGLOBIN 30 pg (25-34); MEAN CORPUSCULAR HGB CONC 33 g/dL (32-36); MEAN CORPUSCULAR VOLUME 89 fL (80-99); MONOCYTES # (AUTO) 0.5 10^3/uL (0.0-1.0); MONOCYTES % (AUTO) 5 % (0-12); NEUTROPHILS # (AUTO) 7.5 10^3/uL (1.8-7.8); NEUTROPHILS % (AUTO) 74 % (42-75); PLATELET COUNT 220 10^3/uL (130-400); WHITE BLOOD COUNT 10.2 10^3/uL (4.3-11.0)
[2022-04-28 00:53] LABS: BILIRUBIN,URINE NEGATIVE (NEGATIVE); CLARITY,URINE SL CLOUDY; COLOR,URINE YELLOW; GLUCOSE, URINE (UA) NEGATIVE (NEGATIVE); KETONES,URINE NEGATIVE (NEGATIVE); LEUKOCYTE ESTERASE ,URINE 1+ (NEGATIVE); NITRITE,URINE POSITIVE (NEGATIVE); PH,URINE 6.5 (5-9); PROTEIN,URINE TRACE (NEGATIVE)
[2022-04-28] MEDS ORDERED: FAMOTIDINE 20MG/2ML IV (PEPCID) IVP ONE (01:00)
[2022-04-28 01:01] LABS: BACTERIA,URINE LARGE /HPF
[2022-04-28 01:06] LABS: FIBRIN DEGRADATION PRODUCTS 1.9 UG/ML (0.00-0.49); PROTHROMBIN TIME PATIENT 13.6 SEC (12.2-14.7)
[2022-04-28 01:07] LABS: BUN/CREATININE RATIO 22; CALCIUM 8.7 MG/DL (8.5-10.1); CARBON DIOXIDE 26 MMOL/L (21-32); CHLORIDE 103 MMOL/L (98-107); CREATININE SERUM 1.32 MG/DL (0.60-1.30); GFR ESTIMATED 55; GLUCOSE 130 MG/DL (70-105); MAGNESIUM 1.7 MG/DL (1.6-2.4); POTASSIUM 3.7 MMOL/L (3.6-5.0); SODIUM 141 MMOL/L (135-145)
[2022-04-28 01:08] LABS: ALANINE AMINOTRANSFERASE 68 U/L (0-55); ALKALINE PHOSPHATASE 163 U/L (40-136); BILIRUBIN,TOTAL 0.5 MG/DL (0.1-1.0); LIPASE 41 U/L (8-78); TOTAL PROTEIN 7.1 GM/DL (6.4-8.2)
[2022-04-28] MEDS ORDERED: FINA5TAB6 PO (01:29)
[2022-04-28] MEDS ORDERED: TMSL.4C PO (01:29)
[2022-04-28] MEDS ORDERED: METO50TA15 PO (01:30)
[2022-04-28] MEDS ORDERED: PANT40TA52 PO (01:30)
[2022-04-28] MEDS ORDERED: HYDR25TA4 PO (01:30)
[2022-04-28] MEDS ORDERED: SULF1TAB38 PO (01:30)
[2022-04-28] MEDS ORDERED: HOLD METFORMIN - RECEIVED CONTRAST 20 ML VIAL IV SCH (02:00)
[2022-04-28] MEDS ORDERED: ANTACID SUSP 30 ML UDC (MYLANTA) PO ONE (02:00)
[2022-04-28] MEDS ORDERED: LIDOCAINE 2% VISCOUS 15 ML UDC PO ONE (02:00)
[2022-04-28] MEDS ORDERED: NS 100 ML (IVPB) BAG IV ONE (02:00)
[2022-04-28] MEDS ORDERED: IOHEXOL 350 MG/ML 100 ML (OMNIPAQUE 350) VIAL IV ONE (02:00)
[2022-04-28] MEDS ORDERED: LIDOCAINE 2% VISCOUS 15 ML UDC ONE (02:24)
[2022-04-28] MEDS ORDERED: cefTRIAXone 1 GM PRE-MIX 50 ML IV ONE (03:00)
[2022-04-28] MEDS ORDERED: PANT40SU PO (03:37)
[2022-04-28] MEDS ORDERED: MAG355OR16 PO (03:39)
[2022-04-28 03:55] VITALS: BP 127/67
--- NOTE | 2022-04-28 08:53 | Diagnostic Imaging Report ---
TECHNIQUE: Multiple contiguous axial images were obtained through the chest after uneventful bolus administration of intravenous contrast. 3D reconstructed CTA MIP acquisitions were also performed. Auto Exposure Controls were utilized during the CT exam to meet ALARA standards for radiation dose reduction. INDICATION: Elevated d-dimer. Pain. EXAMINATION: CTA chest on 04/28/2022. FINDINGS: There are no central or proximal segmental pulmonary emboli. Atherosclerotic disease is seen along the aorta which is otherwise normal. There is a large hiatal hernia. No mediastinal or hilar adenopathy is appreciated. There is bibasilar atelectasis. No focal infiltrates. No effusions. The visualized upper abdomen demonstrates mild hepatic steatosis. There is no acute abnormality appreciated. Within the spine, multiple compression deformities are noted within the thoracic spine, likely chronic although age indeterminate. Correlate for any point tenderness. IMPRESSION: 1. No central or proximal segmental pulmonary emboli. 2. Large hiatal hernia. 3. Hepatic steatosis with other findings as noted above. Pertinent findings agree with the preliminary report. Dictated by: Dictated on workstation # [id number]
--- NOTE | 2022-04-28 08:54 | Diagnostic Imaging Report ---
EXAMINATION: Chest 1 view HISTORY: Chest pain. COMPARISON: 12/25/2021 FINDINGS: Heart size mildly enlarged. There are mild bibasilar interstitial opacities. No pleural effusion or pneumothorax. Degenerative changes of the thoracic spine. Osseous structures are otherwise intact. IMPRESSION: 1. Cardiomegaly with mild bibasilar atelectasis, edema, or consolidation. Dictated by: Dictated on workstation # [id number]
--- NOTE | 2022-04-28 08:56 | Diagnostic Imaging Report ---
PROCEDURE: CT abdomen and pelvis without contrast. TECHNIQUE: Multiple contiguous axial images were obtained through the abdomen and pelvis without the use of intravenous contrast. Auto Exposure Controls were utilized during the CT exam to meet ALARA standards for radiation dose reduction. INDICATION: Chest pain and abdominal pain, epigastric pain. EXAMINATION: CT abdomen and pelvis without contrast 04/28/2022. COMPARISON: None FINDINGS: Marked large hiatal hernia is noted. Nonopacified liver grossly unremarkable. Spleen normal. Pancreas unremarkable. Adrenal glands unremarkable. There are likely stones in the gallbladder. There is mild atrophy of the kidneys otherwise normal. There is atherosclerotic disease. There are changes of moderate constipation. There is diverticular disease without evidence for acute diverticulitis. No ascites. No free air. Streak artifact in the pelvis from the right hip prosthesis limits evaluation of the pelvic structures were fully catheter noted in the urinary bladder. Urinary bladder likely iatrogenic. There is a prominent right fat-containing inguinal hernia. There is nonspecific fat stranding overlying the right hip likely postoperative. There is a likely subcutaneous hematoma or seroma. IMPRESSION: 1. Diverticular disease without evidence for diverticulitis. Constipation changes noted. 2. Large hiatal hernia. 3. Postoperative changes right hip as above. Other incidental findings as noted. Dictated by: Dictated on workstation # [id number]
== END 2022-04-28 03:55 | disposition home or self-care (01) ==
LOC: EDUNIT# 00:19 → ER FS 00:21
DX: K44.9 Diaphragmatic hernia without obstruction or gangrene (principal); K21.9 Gastro-esophageal reflux disease without esophagitis; K80.20 Calculus of gallbladder without cholecystitis without obstruction; K57.30 Diverticulosis of large intestine without perforation or abscess without bleeding; N30.01 Acute cystitis with hematuria
CPT/HCPCS: 36415; 71045; 71275; 74176; 80053; 81000; 83605; 83690; 83735; 83880; 84484; 85025; 85379; 85610; 85730; 87077; 87088; 87186; 93005; 93041; Q9967